=== PATIENT | female | born 1980 | race Caucasian/White ===

== ENCOUNTER 2017-07-11 09:48 | Inpatient (IN) | payer OTHER ==
[~2017-07-11] VITALS: Ht 172.7 cm; Wt 74.6 kg
[2017-07-11 10:37] LABS: PLATELET COUNT 272 x10^3mcL (130-400)
[2017-07-11 10:41] LABS: RED CELL DISTRIBUTION WIDTH 21.3 % (11.5-14.5)
[2017-07-11 10:42] LABS: BASOPHIL % 0 % (0-2); rbc morphology (normal/abnorm) ABNORMAL (NORMAL)
[2017-07-11 11:08] LABS: ALBUMIN 4.2 g/dL (3.4-5.0); ALKALINE PHOSPHATASE 76 U/L (46-116); ALT/SGPT 37 U/L (14-59); AST/SGOT 15 U/L (15-37); BILIRUBIN TOTAL 0.6 mg/dL (0.20-1.00); CALCIUM 9.2 mg/dL (8.5-10.1); CARBON DIOXIDE 26.6 mmol/L (21-32); CHLORIDE SERUM 99 mmol/L (98-107); CREATININE SERUM 0.9 mg/dL (0.6-1.0); GFR1 > 60 mL/min; GLUCOSE SERUM 101 mg/dL (74-106); SODIUM SERUM 139 mmol/L (136-145)
[2017-07-11 11:10] LABS: POTASSIUM SERUM 2.7 mmol/L (3.5-5.1); TOTAL PROTEIN, SERUM 9.2 g/dL (6.4-8.2)
[2017-07-11] MEDS ORDERED: ZOF4 PO (12:18)
[2017-07-11] MEDS ORDERED: NORCO1 TA2 PO (12:18)
[2017-07-11 12:48] VITALS: BP 117/88; BP 177/88
[2017-07-11 13:11] LABS: urine erythrocyte NEGATIVE (NEGATIVE)
[2017-07-11 13:12] LABS: microscopic required? YES
[2017-07-11 13:15] LABS: FREE T4 1.14 ng/dL (0.76-1.46); T3 TOTAL 1.02 ng/mL; T4(THYROXINE) 9.3 ug/dL (4.7-13.3)
[2017-07-11 13:53] LABS: MAGNESIUM 1.9 mg/dL (1.8-2.4); PHOSPHOROUS 2.8 mg/dL (2.5-4.9)
[2017-07-11 14:15] LABS: AMPHETAMINE QUAL UR NONE DETECTED (NEG <=1000)
[2017-07-11 14:48] LABS: RED BLOOD CELLS 5.53 M/mm3 (4.10-5.10)
[2017-07-11 14:57] VITALS: BP 166/84
[2017-07-11 15:27] LABS: IRON 20 ug/dL (50-170); TOTAL IRON BINDING CAPACITY 578 ug/dL (250-450)
[2017-07-11 18:21] VITALS: BP 167/90
[2017-07-11 22:03] VITALS: BP 135/79
[2017-07-11 22:13] LABS: CALCIUM 7.9 mg/dL (8.5-10.1); CARBON DIOXIDE 25.7 mmol/L (21-32); CHLORIDE SERUM 101 mmol/L (98-107); CREATININE SERUM 0.9 mg/dL (0.6-1.0); GFR1 > 60 mL/min; GLUCOSE SERUM 97 mg/dL (74-106); SODIUM SERUM 138 mmol/L (136-145)
[2017-07-11 22:15] LABS: POTASSIUM SERUM 3.3 mmol/L (3.5-5.1)
[2017-07-12 06:27] LABS: BASOPHIL % 0.4 % (0-2); PLATELET COUNT 242 x10^3mcL (130-400)
[2017-07-12 06:28] VITALS: BP 115/70
[2017-07-12 06:38] LABS: RED CELL DISTRIBUTION WIDTH 21.3 % (11.5-14.5)
[2017-07-12 06:39] LABS: rbc morphology (normal/abnorm) ABNORMAL (NORMAL)
[2017-07-12 07:58] LABS: CALCIUM 8.1 mg/dL (8.5-10.1); CARBON DIOXIDE 26.4 mmol/L (21-32); CHLORIDE SERUM 103 mmol/L (98-107); CREATININE SERUM 0.7 mg/dL (0.6-1.0); GFR1 > 60 mL/min; GLUCOSE SERUM 82 mg/dL (74-106); POTASSIUM SERUM 3.8 mmol/L (3.5-5.1); SODIUM SERUM 137 mmol/L (136-145)
[2017-07-12 10:20] VITALS: BP 116/69
[2017-07-12 14:24] VITALS: BP 115/68
[2017-07-12 17:18] VITALS: BP 122/66
[2017-07-12 21:05] VITALS: BP 106/60
[2017-07-13 05:45] VITALS: BP 116/61
[2017-07-13 06:43] LABS: CALCIUM 8.6 mg/dL (8.5-10.1); CARBON DIOXIDE 23.5 mmol/L (21-32); CHLORIDE SERUM 107 mmol/L (98-107); CREATININE SERUM 0.7 mg/dL (0.6-1.0); GFR1 > 60 mL/min; GLUCOSE SERUM 96 mg/dL (74-106); POTASSIUM SERUM 4.7 mmol/L (3.5-5.1); SODIUM SERUM 138 mmol/L (136-145)
[2017-07-13 06:51] LABS: BASOPHIL % 0.1 % (0-2); PLATELET COUNT 222 x10^3mcL (130-400)
[2017-07-13 06:53] LABS: RED CELL DISTRIBUTION WIDTH 21.6 % (11.5-14.5)
[2017-07-13 06:54] LABS: rbc morphology (normal/abnorm) ABNORMAL (NORMAL)
[2017-07-13 09:31] VITALS: BP 116/61
[2017-07-13 10:13] VITALS: BP 114/69
[2017-07-13] MEDS ORDERED: CYCLOBENZAPRINE5 MG PO (11:23)
[2017-07-13] MEDS ORDERED: COZ25 PO (13:36)
== END 2017-07-13 14:47 | disposition home or self-care (01) | DRG 103 ==
LOC: ED 09:48 → DU 12:06 → MU 07-13 09:47
PROVIDERS: Emergency Medicine; Family Medicine
DX: G44.201 Tension-type headache, unspecified, intractable (principal); G43.009 Migraine without aura, not intractable, without status migrainosus; E87.6 Hypokalemia; G90.8 Other disorders of autonomic nervous system; I10 Essential (primary) hypertension; D50.9 Iron deficiency anemia, unspecified; Z68.25 Body mass index [BMI] 25.0-25.9, adult; E04.1 Nontoxic single thyroid nodule; G97.1 Other reaction to spinal and lumbar puncture
CPT/HCPCS: 84439; J0696; J1100; J1885; J2405; J2765; J2916; J3010; J3480; J7030; Q0092